=== PATIENT | female | born 1985 | race Caucasian/White ===

== ENCOUNTER → 2020-11-12 | Outpatient (CLI) | payer BC | END | disposition home or self-care (01) | LOC: RADMRIMAIN 11:34 | PROVIDERS: ATTEND Nurse Practitioner | DX: Z53.9 Procedure and treatment not carried out, unspecified reason (principal) ==

== ENCOUNTER → 2021-07-29 | Outpatient (CLI) | payer OTHER | END | disposition home or self-care (01) | LOC: LABWHC1 15:10 | PROVIDERS: ATTEND Emergency Medicine | DX: Z20.822 Contact with and (suspected) exposure to COVID-19 (principal) | CPT/HCPCS: 87635 ==

== ENCOUNTER 2022-03-26 05:58 | Day surgery (SDC) | payer BC, MEDICAID ==
[2022-03-24 16:12] VITALS: BMI 26.4
[~2022-03-26 05:58] MED LIST: LACTATED RINGERS 1,000 ML IV SCH; LIDOCAINE 1% (10MG/ML) FOR IV START INTRADERMA PRN
[2022-03-26 06:45] VITALS: RESP 16; TEMP 97.3
[2022-03-26] MEDS ORDERED: LIDOCAINE 1% (10MG/ML) FOR IV START SQ ONE (06:53)
[2022-03-26] MEDS ORDERED: fentaNYL (PF) 50 MCG/ML 2 ML AMP ONE (07:10)
[2022-03-26] MEDS ORDERED: PROPOFOL 10 MG/ML 20 ML VIAL IV ONE (07:10)
[2022-03-26] MEDS ORDERED: LIDOCAINE 2% INJ 20 MG/ML (2 ML VIAL) ONE (07:10)
[2022-03-26] MEDS ORDERED: MIDAZOLAM 2 MG/2 ML VIAL ONE (07:10)
--- NOTE | 2022-03-26 07:27 | P.PCN ---
Date of Procedure: 03/26/22 Procedure(s) Performed: Brief history: Patient is a pleasant 37-year-old white female scheduled for an elective upper endoscopy as well as colonoscopy as a part of evaluation of abdominal pain and change in bowel habits for the last several months duration. Procedure performed: Esophagogastroduodenoscopy with biopsy Colonoscopy Preoperative diagnosis: Abdominal pain Change in bowel habits Anesthesia: MAC Procedure: After informed consent was obtained from the patient was brought into the endoscopy unit and IV sedation was administered by anesthesia under continuous monitoring. Initially upper endoscopy was done. The Olympus GF 160 video endoscope was inserted inserted into the mouth and esophagus intubated without any difficulty and was gradually advanced into the stomach and duodenum and carefully examined. The bulb and second part of the duodenum appeared normal. Abscesses were done from the duodenum to rule out celiac disease. The scope was then withdrawn into the stomach adequately insufflated with air and upon careful examination the antrum and mild gastritis and biopsies were done from this area. The body, cardia and fundus appeared normal. The scope was then withdrawn into the esophagus. The GE junction was located at 38 cm to the incisors. It appeared regular once Provigil erosions consistent with LA grade a reflux esophagitis. Small sliding type hiatal hernia noted. Rest of the esophagus appeared normal. Patient tolerated the procedure well. At this time the patient continued to remain sedation. Initial digital rectal examination was normal. Olympus CF 160 video colonoscope was then inserted into the rectum and gradually advanced to the cecum without any difficulty. Careful examination was performed as the scope was gradually being withdrawn. The prep was excellent. terminal ileum was intubated and 20 cm visualized and appeared normal. The cecum, ascending colon, transverse colon, descending colon, sigmoid colon and rectum appeared normal. Retroflexion was performed in the rectum and no lesions were noted. Patient tolerated the procedure well. Impression: 1. Upper endoscopy revealed mild antral gastritis, small hiatal hernia and LA grade A reflux esophagitis 2. Colonoscopy was within normal limits with no evidence of colitis or colorectal neoplasia Recommendations: Findings of this examination were discussed with the patient as well as a family. She was advised to follow with the biopsy results. she'll be seen in office in 2-3 weeks.
[2022-03-26 07:52] VITALS: BP 132/90; PULSE 78
== END 2022-03-26 08:15 | disposition home or self-care (01) ==
LOC: ORWHC2ENDO 05:58
PROVIDERS: ATTEND Internal Medicine Gastroenterology
DX: K29.50 Unspecified chronic gastritis without bleeding (principal); K21.9 Gastro-esophageal reflux disease without esophagitis; K44.9 Diaphragmatic hernia without obstruction or gangrene; R19.4 Change in bowel habit; J45.909 Unspecified asthma, uncomplicated; I10 Essential (primary) hypertension; Z79.899 Other long term (current) drug therapy; Z88.1 Allergy status to other antibiotic agents; Z98.891 History of uterine scar from previous surgery
CPT/HCPCS: 81025; 88305; 45378; 43239; J2250; J3010; J2704; J2001

== ENCOUNTER → 2023-04-01 | Outpatient (CLI) | payer MEDICAID ==
--- NOTE | 2023-04-01 15:33 | MM ---
Reason for Exam: Screening (asymptomatic). Baseline mammogram. Patient History: Menarche at age 10. First Full-Term at age 19. Patient used Hormonal Contraceptives for 10 years. Last menstrual period: 03/30/2023 Risk Values: Ольга 5 year model risk: 0.5%. NCI Lifetime model risk: 9.0%. Prior Study Comparison: Patient's first Mammogram. Tissue Density: There are scattered fibroglandular densities. Findings: Analyzed By CAD. There is no suspicious group of microcalcifications or new suspicious mass in either breast. Overall Assessment: Negative, BI-RAD 1 Management: Screening Mammogram of both breasts in [address] [facility] will attempt to contact patient to return for supplemental views and ultrasound if indicated. Patient should continue monthly self-breast exams. A clinical breast exam by your physician is recommended on an annual basis. This exam should not preclude additional follow-up of suspicious palpable abnormalities. Note on Ольга scores and lifetime risk: 1. A Ольга score greater than 3% is considered moderate risk. If this is the case, consider specialist referral to assess eligibility for a risk reducing agent. 2. If overall lifetime risk for the development of breast cancer is 20% or higher, the patient may qualify for future screening with alternating mammogram and breast MRI. Electronically signed and approved by: Rudy Wolf DO
== END | disposition home or self-care (01) ==
LOC: RADMAMWWP 13:21
PROVIDERS: ATTEND Obstetrics & Gynecology
DX: Z12.31 Encounter for screening mammogram for malignant neoplasm of breast (principal)
CPT/HCPCS: 77063; 77067

== ENCOUNTER → 2023-07-15 | Outpatient (CLI) | payer MEDICAID ==
--- NOTE | 2023-07-15 10:37 | US ---
EXAMINATION TYPE: US pelvic complete DATE OF EXAM: 07/15/2023 COMPARISON: NONE CLINICAL INDICATION: Female, 38 years old with history of N94.6 DYSMENORRHEA, UNSPECIFIED; Cervial CA , pre testing for hysterectomy Aug 13 TECHNIQUE: OBTA. Transabdominal sonographic images of the pelvis were acquired. Date of LMP: last month EXAM MEASUREMENTS: Uterus: 9.2 x 4.9 x 3.9 cm Endometrial Stripe: 0.7 cm Right Ovary: 1.9 x 1.1 x 1.3 cm Left Ovary: 1.7 x 1.8 x 1.3 cm 1. Uterus: Anteverted wnl 2. Endometrium: wnl 3. Right Ovary: wnl 4. Left Ovary: wnl 5. Bilateral Adnexa: wnl 6. Posterior cul-de-sac: wnl IMPRESSION: Unremarkable study.
== END | disposition home or self-care (01) ==
LOC: RADUSWWP 10:12
PROVIDERS: ATTEND Obstetrics & Gynecology
DX: N94.6 Dysmenorrhea, unspecified (principal)
CPT/HCPCS: 76856

== ENCOUNTER → 2023-08-04 | Outpatient (CLI) | payer MEDICAID ==
--- NOTE | 2023-08-04 15:20 | CT ---
EXAMINATION TYPE: CT sinus wo con DATE OF EXAM: 08/04/2023 COMPARISON: None HISTORY: chronic sinusitis. CT DLP: 622.30 mGycm. Automated Exposure Control for Dose Reduction was Utilized. TECHNIQUE: CT scan of the sinuses is performed without contrast, axial images are obtained, coronal r eformatted images are also reviewed. FINDINGS: The paranasal sinuses including the frontal, ethmoid, sphenoid, and maxillary sinuses bila terally are well-aerated small mucous retention cyst or polyp involving the left maxillary sinus. Ceci y mild mucosal thickening involving the ethmoid air cells and maxillary sinuses. Minimal mucosal thic kening involving the frontal sinus. No air-fluid levels. Slight nasal septal deviation noted.. The o stiomeatal complex is patent bilaterally on the coronal images. Visualized portion of mastoid air cells show no abnormal opacification. The globes are intact bilate rally. Mild expansion of the sella turcica can be associated with increased benign intracranial hype rtension. IMPRESSION: 1. Mild chronic sinusitis. 2. Mild expansion of the sella turcica can be associated with increased benign intracranial hypertens ion.
== END | disposition home or self-care (01) ==
LOC: RADCTMAIN 14:01
PROVIDERS: ATTEND Otolaryngology
DX: J01.81 Other acute recurrent sinusitis (principal); G93.2 Benign intracranial hypertension
CPT/HCPCS: 70486

== ENCOUNTER → 2023-08-05 | Outpatient (CLI) | payer MEDICAID ==
[2023-08-05 10:59] LABS: Basophils # (A) 0.09 X 10*3/uL (0.00-0.10); Basophils % (A) 1.2 %; Eosinophils # (A) 0.59 X 10*3/uL (0.04-0.35); Eosinophils % (A) 7.6 %; HCT 41.2 % (37.2-46.3); HGB 13.4 d/dL (12.0-15.0); Lymphocytes # (A) 2.49 X 10*3/uL (0.90-5.00); Lymphocytes % (A) 31.9 %; MCH 28.4 pg (27.0-32.0); MCHC 32.5 d/dL (32.0-37.0); MCV 87.3 FL (80.0-97.0); Mean Platelet Volume 11.3 FL (9.5-12.2); Monocytes # (A) 0.71 X 10*3/uL (0.20-1.00); Monocytes % (A) 9.1 %; NRBC Per 100 WBC 0 X 10*3/uL (0.00-0.01); Neutrophils # (A) 3.92 X 10*3/uL (1.80-7.70); Neutrophils % (A) 50.1 %; Platelet Count 263 X 10*3/uL (140-440); RBC 4.72 X 10*6/uL (4.10-5.20); RDW 13.4 % (11.5-14.5); WBC 7.81 X 10*3/uL (4.50-10.00)
[2023-08-05 11:17] LABS: BUN/Creat Ratio 15.75 Ratio (12.00-20.00); Blood Urea Nitrogen 12.6 mg/dL (9.0-27.0); Calcium 10.3 mg/dL (8.7-10.3); Chloride 101 mmol/L (96-109); Glucose 110 mg/dL (70-110); Potassium 3.9 mmol/L (3.5-5.5); Sodium 138 mmol/L (135-145)
== END | disposition home or self-care (01) ==
LOC: LABWHC1 07:14
PROVIDERS: ATTEND Obstetrics & Gynecology
DX: Z01.812 Encounter for preprocedural laboratory examination (principal)
CPT/HCPCS: 36415; 80048; 85025; 86850; 86900; 86901

== ENCOUNTER 2023-08-13 05:39 | Inpatient (IN) | payer MEDICAID ==
[2023-08-07 11:51] VITALS: BMI 27.0
--- NOTE | 2023-08-12 20:07 | P.HPOB ---
History of Present Illness H&P Date: 08/12/23 Chief Complaint: Dysmenorrhea, menorrhagia with regular cycle, WILMER I This is a 38 y.o. female, 2, para 2, who presents for total abdominal hysterectomy with bilateral salpingectomy, possible bilateral oophorectomy due to menorrhagia with regular cycle and dysmenorrhea. She was also recently diagnosed with WILMER I on colposcopy. She has tried oral contraceptives with little relief of her symptoms and has requested hysterectomy. Pelvic ultrasound showed uterus measuring 9.2 x 4.9 x 3.9 cm with endometrium 7 mm and normal ovaries. OB History: . History of 1 vaginal delivery and 1 section for twins. 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 History of recent pap with LGSIL and WILMER I on colposcopy. Social Hx: Single. Works as a nurse aide. Review of Systems Constitutional: Denies chills, Denies fever Eyes: denies blurred vision, denies pain Ears, nose, mouth and throat: Denies headache, Denies sore throat Cardiovascular: Denies chest pain, Denies shortness of breath Respiratory: Denies cough Gastrointestinal: Reports abdominal pain, Reports constipation, Reports diarrhea, Reports heartburn, Denies nausea, Denies vomiting Genitourinary: Reports dysmenorrhea, Reports dyspareunia, Reports menorrhagia, Reports pelvic pain, Reports stress incontinence Musculoskeletal: Reports low back pain Integumentary: Denies pruritus, Denies rash Neurological: Denies numbness, Denies weakness Psychiatric: Denies anxiety, Denies depression Past Medical History Past Medical History: Asthma, Hypertension, Skin Disorder Additional Past Medical History / Comment(s): ECZEMA. CERVICAL Dysplasia (WILMER I). SINUSITIS. CHRONIC NON PRODUCTIVE COUGH. PRONE TO UTI'S History of Any Multi-Drug Resistant Organisms: None Reported Past Surgical History: Section, Cholecystectomy Additional Past Surgical History / Comment(s): COLONOSCOPY/EGD Past Anesthesia/Blood Transfusion Reactions: No Reported Reaction Past Psychological History: No Psychological Hx Reported Smoking Status: Former smoker Past Alcohol Use History: Occasional Past Drug Use History: None Reported - Past Family History Mother Family Medical History: Cancer Additional Family Medical History / Comment(s): CERVICAL CA Father Family Medical History: Hypertension Medications and Allergies Home Medications Medication Instructions Recorded Confirmed Type Azelastine/Fluticasone 1 spray EA NOSTRIL BID 08/07/23 08/13/23 History [Azelastin-Flutic 137-50Mcg Spr] Benzonatate [Tessalon Perles] 100 mg PO TID PRN 08/07/23 08/13/23 History Cholecalciferol [Vitamin D3 (25 50 mcg PO DAILY 08/07/23 08/13/23 History Mcg = 1000 Iu)] Desloratadine [Clarinex] 5 mg PO DAILY 08/07/23 08/13/23 History Losartan [Cozaar] 50 mg PO DAILY 08/07/23 08/13/23 History Triamcinolone 0.025% Cream 1 applic TOPICAL BID PRN 08/07/23 08/13/23 History [Kenalog 0.025% Cream] Allergies Allergy/AdvReac Type Severity Reaction Status Date / Time levofloxacin [From Levaquin] AdvReac Nausea & Verified 08/13/23 06:22 Vomiting Exam Osteopathic Statement: *. No significant issues noted on an osteopathic structural exam other than those noted in the History and Physical/Consult. HEENT: within normal limits Heart: regular rate and rhythm Lungs: clear to auscultation bilaterally Abdomen: soft, non-tender Pelvic: uterus small, anteverted, non-tender with no adnexal masses or tenderness Extremities: neg. Yvonne's Assessment and Plan (1) Menorrhagia with regular cycle Current Visit: No Status: Acute Code(s): N92.0 - EXCESSIVE AND FREQUENT MENSTRUATION WITH REGULAR CYCLE SNOMED Code(s): 092949430 (2) Dysmenorrhea Current Visit: No Status: Acute Code(s): N94.6 - DYSMENORRHEA, UNSPECIFIED SNOMED Code(s): 463857067 (3) WILMER I (cervical intraepithelial neoplasia I) Current Visit: No Status: Acute Code(s): N87.0 - MILD CERVICAL DYSPLASIA SNOMED Code(s): 232144827 Plan: Proceed with total abdominal hysterectomy with bilateral salpingectomy, possible bilateral oophorectomy. I have discussed the risks, benefits, and alternative therapies for the above- mentioned procedure and for both sedation/anesthesia as well as necessary blood products administration, if indicated, as they pertain to this patient. The patient has indicated her understanding and acceptance of the risks and procedures discussed.
[2023-08-13] MEDS ORDERED: ONDANSETRON 4 MG/2 ML VIAL IVP ONE (06:10)
[2023-08-13] MEDS ORDERED: DEXAMETHASONE SOD PHOSPHATE 4 MG/ML 1 ML VIAL IV ONE (06:10)
[2023-08-13] MEDS: LACTATED RINGERS 1,000 ML IV SCH ×3 (06:49→18:40)
[2023-08-13] MEDS ORDERED: SCOPOLAMINE 1 MG/72 HR PATCH TRANSDERM ONE (06:50)
[2023-08-13] MEDS ORDERED: MIDAZOLAM 2 MG/2 ML VIAL IVP ONE (06:59)
[2023-08-13] MEDS ORDERED: PROPOFOL 10 MG/ML 20 ML VIAL IV ONE (07:29)
[2023-08-13] MEDS ORDERED: HYDROmorphone (PF) 1 MG/ML ONE (07:29)
[2023-08-13] MEDS ORDERED: LIDOCAINE 1% INJ 10MG/ML (20 ML MDV) ONE (07:29)
[2023-08-13] MEDS ORDERED: fentaNYL (PF) 50 MCG/ML 2 ML AMP ONE (07:29)
[2023-08-13] MEDS ORDERED: MORPHINE SULFATE (PF) 0.3 MG/0.3 ML SYR ONE (07:29)
[2023-08-13] MEDS ORDERED: GLYCOPYRROLATE 0.2 MG/ML 2 ML VIAL ONE (07:29)
[2023-08-13] MEDS ORDERED: diphenhydrAMINE 50 MG/ML 1 ML VIAL ONE (07:29)
[2023-08-13] MEDS ORDERED: KETOROLAC 15 MG/ML 1 ML VIAL ONE (07:29)
[2023-08-13] MEDS ORDERED: SUCCINYLCHOLINE CHLORIDE 200 MG/10 ML VIAL IV ONE (07:29)
[2023-08-13] MEDS ORDERED: ROCURONIUM 10 MG/ML (5 ML VIAL) IV ONE (07:29)
[2023-08-13] MEDS ORDERED: NEOSTIGMINE 1 MG/ML 10 ML VIAL ONE (07:29)
[2023-08-13] MEDS ORDERED: KETOROLAC 15 MG/ML 1 ML VIAL IVP PRN (07:41)
[2023-08-13] MEDS ORDERED: METOCLOPRAMIDE 5 MG/ML 2 ML VIAL IVP PRN (07:41)
[2023-08-13] MEDS ORDERED: SIMETHICONE 80 MG CHEWABLE PO PRN (07:41)
[2023-08-13] MEDS ORDERED: ONDANSETRON 4 MG/2 ML VIAL IVP PRN (07:41)
[2023-08-13] MEDS ORDERED: ZOLPIDEM 5 MG TAB PO PRN (07:41)
[2023-08-13] MEDS ORDERED: diphenhydrAMINE 50 MG/ML 1 ML VIAL IVP PRN (07:41)
[2023-08-13] MEDS ORDERED: NALBUPHINE 10 MG/ML (10 ML MDV) IV PRN (08:19)
[2023-08-13] MEDS ORDERED: NALOXONE 0.4 MG/ML 1 ML VIAL IV PRN (08:19)
[2023-08-13] MEDS ORDERED: MORPHINE SULFATE 2 MG/ML SYRINGE IVP PRN (08:19)
--- NOTE | 2023-08-13 08:19 | P.ANPRN ---
Procedure Note - Anesthesia - Epidural/Spinal Spinal Date of Procedure: 08/13/23 Procedure Start Time: 06:59 Procedure Stop Time: 07:05 Indication: Acute Post-Operative Pain, Analgesia, Requested by Surgeon Sedation Type: Sedate with meaningful contact maintained Preparation: Sterile Prep Position: Sitting Needle Guage: 25 Injectate: Duramorph 0.3 mg+Fentanyl 25 mcg. Blood Aspirated: No Pain Paresthesia on Injection Noted: No Events: Uneventful and Well Tolerated
--- NOTE | 2023-08-13 08:53 | P.OP ---
Date of Procedure: 08/13/23 Preoperative Diagnosis: Menorrhagia with regular cycle Dysmenorrhea WILMER-1 Postoperative Diagnosis: Same Procedure(s) Performed: Total abdominal hysterectomy with bilateral salpingectomy Anesthesia: TRISH Surgeon: Imelda Farnsworth Piece Dyer #1: Yu Ovalle Estimated Blood Loss (ml): 50 Pathology: other (Uterus with cervix and bilateral fallopian tubes) Condition: stable Disposition: floor Indications for Procedure: This is a 38 y.o. female, 2, para 2, who presents for total abdominal hysterectomy with bilateral salpingectomy, possible bilateral oophorectomy due to menorrhagia with regular cycle and dysmenorrhea. She was also recently diagnosed with WILMER I on colposcopy. She has tried oral contraceptives with little relief of her symptoms and has requested hysterectomy. Pelvic ultrasound showed uterus measuring 9.2 x 4.9 x 3.9 cm with endometrium 7 mm and normal ovaries. Operative Findings: Normal appearing uterus and ovaries. Left fallopian tube was slightly adherent to the left ovary. There was a couple powder burn areas of endometriosis noted on the posterior cul-de-sac and the tubes. No significant adhesions are noted. Description of Procedure: The patient is taken to the operating room where she is placed in the dorsal supine position. She is prepped and draped in the normal sterile fashion including Harrison catheter insertion and vaginal prep. A Pfannenstiel skin incision is made through the previous laparotomy scar with a scalpel. A second knife was used to carry the incision down to the underlying layer of fascia. The fascia was nicked in the midline with a scalpel and then extended laterally bilaterally with De La Garza scissors. The superior aspect of the fascial incision was grasped with Williams clamps, elevated off the underlying rectus muscle in the midline and then cut with De La Garza scissors. The inferior aspect of the fascial incision was grasped with Williams clamps, elevated off the underlying rectus muscle in the midline and then cut with De La Garza scissors. Next the peritoneum was identified and entered sharply with De La Garza scissors. It is extended superiorly and in fairly with Metzenbaum scissors with good visualization of underlying structures. Next the [place] retractor is placed in the bladder blade was inserted. The bowels were packed with a 3 yard laparotomy sponge. Next the uterus is brought up incision and the corneal regions are grasped with Annika clamps on both sides. Next the fallopian tube on the left side is brought up to the incision and the mesosalpinx is clamped with a Francisco clamp after taking down some fine adhesions with Metzenbaum scissors. This is cut with De La Garza scissors and then sutured with 0 Vicryl suture in Francisco transfixion stitch. The remaining mesosalpinx is also clamped with a Francisco clamp, cut with De La Garza scissors, and sutured with 0 Vicryl suture in Francisco transfixion stitches. Next the uterine ovarian ligament is clamped with a Francisco clamp, cut with De La Garza scissors, and then sutured with 0 Vicryl suture in Francisco transfixion stitch. The same procedure is carried out on the right side. The uterine arteries and round ligaments are then clamped with Francisco clamp on either side. The vesicouterine peritoneum was sharply dissected away from the bladder with Metzenbaum scissors and pushed inferiorly. The uterine arteries are then cut with De La Garza scissors, and sutured with 0 Vicryl suture in Francisco transfixion stitches. Next the cardinal ligaments were clamped on either side with Francisco clamp, cut with De La Garza scissors, and sutured with 0 Vicryl suture in Francisco transfixion stitches. The uterosacral ligaments are clamped on either side with Francisco clamps, cut with De La Garza scissors, and sutured with 0 Vicryl suture in Francisco transfixion stitches on either side. The edges of the vaginal cuff were clamped on either side with a Francisco clamp, cut with De La Garza scissors, and sutured with 0 Vicryl suture in Francisco transfixion stitches and held on either side. The vaginal mucosa was then cut just below the level of the cervix and the specimen is removed from the field. The edges of the vaginal cuff were held with Williams clamps. Next the previously held corners of each side of the vaginal cuff were then whipstitched along the connective tissue on either side and brought through the corner of the cuff and tied. Next the vaginal cuff was sutured with 0 Vicryl suture in a running locked fashion. Hemostasis was noted. Copious irrigation is carried out with warm saline. Excellent hemostasis is noted. All sponges are removed from the abdomen. The peritoneum is then closed with 0 Vicryl suture in a running fashion. The muscle was then reapproximated with 0 Vicryl suture in interrupted fashion. The fascia layer is then closed with 0 PDS suture in a running fashion with the knots buried on either side and in the midline. Next the subcutaneous tissues closed with 2-0 Vicryl suture in a running fashion. The skin is closed with tish. All sponge and needle counts are correct and the patient is taken to recovery room in stable condition.
[2023-08-13] MEDS: HYDROmorphone 0.5 MG/0.5 ML SYRINGE IVP PRN ×3 (09:17→10:01)
[2023-08-13] MEDS ORDERED: LACTATED RINGERS 1,000 ML IV ONE ×2 (09:30)
[2023-08-13] MEDS ORDERED: ACETAMINOPHEN IV (For NPO) 1,000 MG in EMPTY BAG 1 BAG IVPB ONE (11:35)
[2023-08-13] MEDS ORDERED: LORATADINE 10 MG TAB PO SCH (12:00)
[2023-08-13] MEDS ORDERED: LOSARTAN 50 MG TAB PO SCH (12:00)
[2023-08-13] MEDS ORDERED: TRIAMCINOLONE 0.1% CREAM 80 GM TUBE TOPICAL PRN (20:00)
[2023-08-13] MEDS ORDERED: BENZONATATE 100 MG CAP PO PRN (20:00)
[2023-08-13] MEDS: SENNOSIDES-DOCUSATE SODIUM 1 EACH TAB PO SCH (20:04)
[2023-08-13] MEDS: AZELASTINE 137MCG/SPRAY EA NOSTRIL SCH (21:14)
[2023-08-13] MEDS: FLUTICASONE 50MCG/SPRAY NASAL 16GM EA NOSTRIL SCH (21:16)
[2023-08-14] MEDS: LACTATED RINGERS 1,000 ML IV SCH ×2 (03:50→05:42)
[2023-08-14] MEDS ORDERED: ACETAMINOPHEN TAB 325 MG TAB PO PRN (07:42)
[2023-08-14] MEDS: LORATADINE 10 MG TAB PO SCH (08:31)
[2023-08-14] MEDS: CHOLECALCIFEROL 25 MCG (1000 IU) TABLET PO SCH (08:31)
[2023-08-14] MEDS: LOSARTAN 50 MG TAB PO SCH (08:31)
[2023-08-14] MEDS: FLUTICASONE 50MCG/SPRAY NASAL 16GM EA NOSTRIL SCH ×2 (08:32→21:29)
[2023-08-14] MEDS: SENNOSIDES-DOCUSATE SODIUM 1 EACH TAB PO SCH ×2 (08:32→21:29)
[2023-08-14] MEDS: AZELASTINE 137MCG/SPRAY EA NOSTRIL SCH ×2 (08:32→21:29)
--- NOTE | 2023-08-14 08:57 | P.PN ---
Subjective Progress Note Date: 08/14/23 Principal diagnosis: Status post total abdominal hysterectomy with bilateral salpingectomy postoperative day #1 Patient is complaining of more pain this morning. She has tried oxycodone without much relief. She just received some Toradol. She is urinating without difficulty. Bleeding has been minimal. She has been ambulating. Objective - Vital Signs Vital signs: Vital Signs Temp 98.4 F 08/14/23 02:00 Pulse 74 08/14/23 02:00 Resp 18 08/13/23 19:56 BP 110/71 08/14/23 02:00 Pulse Ox 96 08/14/23 02:00 FiO2 Intake & Output 08/13/23 08/14/23 08/14/23 18:59 06:59 18:59 Intake Total 1550 Output Total 650 2400 Balance 900 -2400 Weight 70.6 kg Intake: IV 1550 Output: Urine 600 2400 Estimated Blood Loss 50 Other: Voiding Method Indwelling Catheter Indwelling Catheter - Constitutional General appearance: Present: mild distress - Gastrointestinal Gastrointestinal Comment(s): Incision is clean dry and intact with tish in place. Mild tenderness is noted just above the incision and some mild ecchymosis is noted. General gastrointestinal: Present: normal bowel sounds - Musculoskeletal Musculoskeletal Comment(s): Negative Homans bilaterally Assessment and Plan Assessment: Status post total abdominal hysterectomy with bilateral salpingectomy postoperative day #1 (1) Menorrhagia with regular cycle Current Visit: Yes Status: Acute Code(s): N92.0 - EXCESSIVE AND FREQUENT MENSTRUATION WITH REGULAR CYCLE SNOMED Code(s): 369201153 (2) Dysmenorrhea Current Visit: Yes Status: Acute Code(s): N94.6 - DYSMENORRHEA, UNSPECIFIED SNOMED Code(s): 941078055 (3) WILMER I (cervical intraepithelial neoplasia I) Current Visit: Yes Status: Acute Code(s): N87.0 - MILD CERVICAL DYSPLASIA SNOMED Code(s): 448367671 Plan: Continue with postoperative care today. Will advance diet as tolerated. Patient is encouraged to ambulate. May shower.
[2023-08-14 11:08] LABS: Basophils # (A) 0.05 X 10*3/uL (0.00-0.10); Basophils % (A) 0.5 %; Eosinophils # (A) 0.17 X 10*3/uL (0.04-0.35); Eosinophils % (A) 1.6 %; HCT 35.4 % (37.2-46.3); HGB 11.6 g/dL (12.0-15.0); Lymphocytes # (A) 2.81 X 10*3/uL (0.90-5.00); Lymphocytes % (A) 27.1 %; MCH 28.8 pg (27.0-32.0); MCHC 32.8 g/dL (32.0-37.0); MCV 87.8 FL (80.0-97.0); Monocytes # (A) 1.03 X 10*3/uL (0.20-1.00); Monocytes % (A) 9.9 %; NRBC Per 100 WBC 0 X 10*3/uL (0.00-0.01); Neutrophils # (A) 6.29 X 10*3/uL (1.80-7.70); Neutrophils % (A) 60.7 %; Platelet Count 221 X 10*3/uL (140-440); RBC 4.03 X 10*6/uL (4.10-5.20); RDW 13.5 % (11.5-14.5); WBC 10.37 X 10*3/uL (4.50-10.00)
--- NOTE | 2023-08-14 11:57 | P.PN ---
Progress Note - Text 08/14/23 647am 38-year-old female status post cholecystectomy by Dr. Farnsworth. Patient had spinal Duramorph for postop pain control, she was seen and evaluated. She is doing well with a pain score of 4. She also had complains of nausea vomiting and pruritus last night. Doing better this morning
[2023-08-14] MEDS: IBUPROFEN 600 MG TAB PO PRN (16:03)
[2023-08-15] MEDS: AZELASTINE 137MCG/SPRAY EA NOSTRIL SCH (08:28)
[2023-08-15] MEDS: FLUTICASONE 50MCG/SPRAY NASAL 16GM EA NOSTRIL SCH (08:29)
[2023-08-15] MEDS: IBUPROFEN 600 MG TAB PO PRN (08:29)
[2023-08-15] MEDS: CHOLECALCIFEROL 25 MCG (1000 IU) TABLET PO SCH (08:29)
[2023-08-15] MEDS: LORATADINE 10 MG TAB PO SCH (08:29)
[2023-08-15] MEDS: LOSARTAN 50 MG TAB PO SCH (08:29)
[2023-08-15] MEDS: SENNOSIDES-DOCUSATE SODIUM 1 EACH TAB PO SCH (08:29)
[2023-08-15 08:58] VITALS: BP 143/88; PULSE 102; RESP 16; TEMP 98.6
--- NOTE | 2023-08-15 11:52 | P.DS ---
Providers Date of admission: 08/13/23 05:39 Expected date of discharge: 08/15/23 Attending physician: Imelda Farnsworth Primary care physician: Harlan Lara - Discharge Diagnosis(es) (1) Menorrhagia with regular cycle Current Visit: Yes Status: Acute (2) Dysmenorrhea Current Visit: Yes Status: Acute (3) WILMER I (cervical intraepithelial neoplasia I) Current Visit: Yes Status: Acute Hospital Course: this is a 38-year-old female who underwent a total abdominal hysterectomy with bilateral salpingectomy on 08/13/2023. Her postoperative course has been essentially uncomplicated. She is still complaining of some gas pain but is passing flatus but no bowel movement yet. She is using ibuprofen and oxycodone alternating. She is urinating without difficulty. She has very minimal bleeding. Vital signs are stable. Abdomen is soft with positive bowel sounds 4. Incision is clean dry and intact with tish in place. Extremities show negative Homans. Impression is status post total abdominal hysterectomy with bilateral salpingectomy postoperative day #2. Plan is to discharge home today. Routine postoperative instructions are given. She is advised to follow up in the office in approximately 1 week for a postoperative check. She is advised to call the office if she has any further questions or concerns prior to her appointment time. She will be given a prescription for ibuprofen and she is also advised to continue taking Tylenol as needed. She will also be given a small amount of oxycodone to use only as needed. She has been counseled regarding opioid use and has signed a consent form. [place] will be removed and Steri-Strips placed prior to discharge. Procedures: total abdominal hysterectomy with bilateral salpingectomy on 08/13/2023 Patient Condition at Discharge: Stable Plan - Discharge Summary Discharge Rx Participant: No New Discharge Prescriptions: New Ibuprofen [Motrin] 600 mg PO Q6HR PRN #60 tab PRN Reason: Mild Discomfort oxyCODONE HCL [OxyIR] 5 mg PO Q6HR PRN #18 tab PRN Reason: Moderate To Severe Pain (4-10) Acetaminophen Tab [Tylenol] 650 mg PO Q6HR PRN tab PRN Reason: Mild Pain Or Fever > 100.5 Continue Cholecalciferol [Vitamin D3 (25 Mcg = 1000 Iu)] 50 mcg PO DAILY Benzonatate [Tessalon Perles] 100 mg PO TID PRN PRN Reason: Cough Triamcinolone 0.025% Cream [Kenalog 0.025% Cream] 1 applic TOPICAL BID PRN PRN Reason: ECZEMA Losartan [Cozaar] 50 mg PO DAILY Desloratadine [Clarinex] 5 mg PO DAILY Azelastine/Fluticasone [Azelastin-Flutic 137-50Mcg Spr] 1 spray EA NOSTRIL BID Discharge Medication List Azelastine/Fluticasone [Azelastin-Flutic 137-50Mcg Spr] 1 spray EA NOSTRIL BID 08/07/23 [History] Benzonatate [Tessalon Perles] 100 mg PO TID PRN 08/07/23 [History] Cholecalciferol [Vitamin D3 (25 Mcg = 1000 Iu)] 50 mcg PO DAILY 08/07/23 [Histor y] Desloratadine [Clarinex] 5 mg PO DAILY 08/07/23 [History] Losartan [Cozaar] 50 mg PO DAILY 08/07/23 [History] Triamcinolone 0.025% Cream [Kenalog 0.025% Cream] 1 applic TOPICAL BID PRN 08/07/23 [History] Acetaminophen Tab [Tylenol] 650 mg PO Q6HR PRN tab 08/15/23 [Rx] Ibuprofen [Motrin] 600 mg PO Q6HR PRN #60 tab 08/15/23 [Rx] oxyCODONE HCL [OxyIR] 5 mg PO Q6HR PRN #18 tab 08/15/23 [Rx] Follow up Appointment(s)/Referral(s): Imelda Farnsworth DO [Doctor of Osteopathic Medicine] - 1 Week Activity/Diet/Wound Care/Special Instructions: Activity as tolerated. Diet as tolerated. Shower, but no tub baths for at least 1 week[address] No driving until off of narcotic pain medication. No heavy lifting. No intercourse. Discharge Disposition: HOME SELF-CARE
== END 2023-08-15 13:05 | disposition home or self-care (01) | DRG 743 ==
LOC: 2ORMAIN 05:39 → 4SSUR 11:12
PROVIDERS: ADMIT Obstetrics & Gynecology; ATTEND Obstetrics & Gynecology
PROC: 0UT90ZZ Resection of Uterus, Open Approach (ICD-10-PCS; principal; 2023-08-13 07:30)
PROC: 0UT70ZZ Resection of Bilateral Fallopian Tubes, Open Approach (ICD-10-PCS; principal; 2023-08-13 07:30)
DX: N87.0 Mild cervical dysplasia (principal); N94.6 Dysmenorrhea, unspecified; N92.0 Excessive and frequent menstruation with regular cycle; I10 Essential (primary) hypertension; Z71.51 Drug abuse counseling and surveillance of drug abuser; F11.10 Opioid abuse, uncomplicated; Z28.310 Unvaccinated for COVID-19; L30.9 Dermatitis, unspecified; J45.909 Unspecified asthma, uncomplicated; Z87.440 Personal history of urinary (tract) infections; Z87.891 Personal history of nicotine dependence; Z79.899 Other long term (current) drug therapy
CPT/HCPCS: 81025; 85025; 88307; 94760

== ENCOUNTER → 2023-10-26 | Outpatient (CLI) | payer MEDICAID ==
[2023-10-26 15:00] LABS: BUN/Creat Ratio 17.12 Ratio (12.00-20.00); Blood Urea Nitrogen 13.7 mg/dL (9.0-27.0); Calcium 10.4 mg/dL (8.7-10.3); Carbon Dioxide 24.6 mmol/L (21.6-31.8); Chloride 100 mmol/L (96-109); Glucose 98 mg/dL (70-110); Potassium 4.4 mmol/L (3.5-5.5); Sodium 138 mmol/L (135-145)
[2023-10-26 15:07] LABS: Basophils # (A) 0.09 X 10*3/uL (0.00-0.10); Basophils % (A) 1.1 %; Eosinophils # (A) 0.55 X 10*3/uL (0.04-0.35); Eosinophils % (A) 6.7 %; HCT 42.9 % (37.2-46.3); HGB 13.6 g/dL (12.0-15.0); Lymphocytes # (A) 2.39 X 10*3/uL (0.90-5.00); Lymphocytes % (A) 29.1 %; MCH 28.3 pg (27.0-32.0); MCHC 31.7 g/dL (32.0-37.0); MCV 89.2 FL (80.0-97.0); Mean Platelet Volume 10.7 FL (9.5-12.2); Monocytes # (A) 0.87 X 10*3/uL (0.20-1.00); Monocytes % (A) 10.6 %; NRBC Per 100 WBC 0 X 10*3/uL (0.00-0.01); Neutrophils % (A) 52.3 %; Platelet Count 318 X 10*3/uL (140-440); RBC 4.81 X 10*6/uL (4.10-5.20); WBC 8.22 X 10*3/uL (4.50-10.00)
[2023-10-26 17:06] LABS: Appearance,Urine Cloudy (Clear); Bilirubin,Urine Negative (Negative); Blood,Urine Negative (Negative); Color,Urine Orange (Yellow); Ketones,Urine Negative (Negative); Nitrite,Urine Positive (Negative); Specific Gravity,Urine 1.007 (1.001-1.030)
[2023-10-26 17:28] LABS: Bacteria,Urine 3+ (None Seen)
== END | disposition home or self-care (01) ==
LOC: LABPAT 07:13
PROVIDERS: ATTEND Urology
DX: Z01.812 Encounter for preprocedural laboratory examination (principal); N39.3 Stress incontinence (female) (male); R35.0 Frequency of micturition
CPT/HCPCS: 80048; 81001; 85025; 87086

== ENCOUNTER 2023-11-03 09:15 | Day surgery (SDC) | payer MEDICAID ==
[2023-10-30 09:35] VITALS: BMI 27.6
--- NOTE | 2023-11-03 07:11 | P.HPIHPCON ---
History of Present Illness H&P Date: 11/03/23 Chief Complaint: Stress urinary incontinence This is a 38-year-old female with history of stress urinary incontinence, underwent urodynamic which was consistent with stress urinary incontinence. Option of bulking agent versus sling versus Kegel exercises were discussed with her in detail. She agreed to proceed with a transobturator sling, aware of the risk which includes but not limited to bleeding, infection, urinary retention, persistent incontinence. Discussed I will be using mesh. Discussed risk of mesh erosion into the urethra, vagina, the bladder. She understood all the risk and agreed to proceed Consent for Procedure: I have explained the operation/procedure to the patient, including the risks, benefits, side effects, alternative therapies (including not receiving the proposed treatment or service), the likelihood of the patient achieving his/her goals, and potential recuperation problems for the procedure/sedation/analgesia, as well as any blood products, if indicated. I also explained to the patient the risks, benefits and side effects of the alternatives, as well as the risks related to not receiving the proposed procedure, care, treatment, or services. Past Medical History Past Medical History: Asthma, Cancer, Hypertension Additional Past Medical History / Comment(s): CERVICAL CANCER. BENIGN INTRACRANIAL HYPERTENSION -CT SCAN 07/1023. CURRENTLY ON ANTIBIOTICS FOR UTI History of Any Multi-Drug Resistant Organisms: None Reported Past Surgical History: Section, Cholecystectomy, Hysterectomy Additional Past Surgical History / Comment(s): COLONOSCOPY/EGD Past Anesthesia/Blood Transfusion Reactions: No Reported Reaction Smoking Status: Former smoker - Past Family History Mother Family Medical History: Cancer Additional Family Medical History / Comment(s): CERVICAL CA Father Family Medical History: Hypertension Medications and Allergies Home Medications Medication Instructions Recorded Confirmed Type Azelastine/Fluticasone 1 spray EA NOSTRIL BID 08/07/23 10/30/23 History [Azelastin-Flutic 137-50Mcg Spr] Cholecalciferol [Vitamin D3 (25 50 mcg PO DAILY 08/07/23 10/30/23 History Mcg = 1000 Iu)] Desloratadine [Clarinex] 5 mg PO DAILY 08/07/23 10/30/23 History Losartan [Cozaar] 50 mg PO DAILY 08/07/23 10/30/23 History Acetaminophen Tab [Tylenol] 650 mg PO Q6HR PRN tab 08/15/23 10/30/23 Rx Ibuprofen [Motrin] 600 mg PO Q6HR PRN #60 tab 08/15/23 10/30/23 Rx Nitrofurantoin Monohyd/M-Cryst 100 mg PO BID 10/30/23 10/30/23 History [Nitrofurantoin [place]-Mcr 100 mg] Allergies Allergy/AdvReac Type Severity Reaction Status Date / Time levofloxacin [From Levaquin] AdvReac Nausea & Verified 10/30/23 09:19 Vomiting Surgical - Exam - General no distress, no pain - Eyes normal ocular movement, no pale - ENT normal nares, normal mucosa - Respiratory normal expansion, normal respiratory effort - Abdomen Abdomen: soft, non tender Assessment and Plan Assessment: OR for transobturator sling
[~2023-11-03 09:15] MED LIST changes: +DEXAMETHASONE SOD PHOSPHATE 4 MG/ML 1 ML VIAL IV ONE; +HYDROmorphone 0.5 MG/0.5 ML SYRINGE IVP PRN; +MIDAZOLAM 2 MG/2 ML VIAL IV PRN; +ONDANSETRON 4 MG/2 ML VIAL IVP ONE
[2023-11-03] MEDS ORDERED: FAMOTIDINE 20 MG/2 ML VIAL IVP ONE (10:23)
[2023-11-03] MEDS ORDERED: ONDANSETRON 4 MG/2 ML VIAL IVP PRN (10:39)
[2023-11-03] MEDS ORDERED: KETOROLAC 15 MG/ML 1 ML VIAL IVP PRN (10:39)
[2023-11-03] MEDS ORDERED: DEXTROSE 5%-0.45% NACL 1,000 ML IV SCH (10:45)
[2023-11-03] MEDS ORDERED: fentaNYL (PF) 50 MCG/ML 2 ML AMP ONE (10:48)
[2023-11-03] MEDS ORDERED: PROPOFOL 10 MG/ML 20 ML VIAL IV ONE (10:48)
[2023-11-03] MEDS ORDERED: MIDAZOLAM 2 MG/2 ML VIAL ONE (10:48)
[2023-11-03] MEDS ORDERED: PHENYLEPHRINE-0.9% NACL SYG 1,000 MCG/10 ML SYRINGE ONE (10:48)
[2023-11-03] MEDS ORDERED: SUCCINYLCHOLINE CHLORIDE 200 MG/10 ML VIAL IV ONE (10:48)
[2023-11-03] MEDS ORDERED: KETOROLAC 15 MG/ML 1 ML VIAL ONE (10:48)
[2023-11-03] MEDS ORDERED: LIDOCAINE 1% INJ 10MG/ML (20 ML MDV) ONE (10:48)
[2023-11-03] MEDS ORDERED: IOPAMIDOL-370 100ML BTL MISCELLANE ONE ×2 (11:34)
[2023-11-03] MEDS ORDERED: LACTATED RINGERS 1,000 ML IV ONE ×2 (11:48)
[2023-11-03 12:12] VITALS: TEMP 97.3
--- NOTE | 2023-11-03 12:27 | FL ---
EXAMINATION TYPE: FL urography retrograde DATE OF EXAM: 11/03/2023 COMPARISON: NONE HISTORY: Fistula TECHNIQUE: Fluoroscopy. FINDINGS: Exam for fistula 2.25min fluoro time 2.44 DAP IMPRESSION: As Above.
--- NOTE | 2023-11-03 14:03 | P.OP ---
Date of Procedure: 11/03/23 Preoperative Diagnosis: Stress urinary incontinence Postoperative Diagnosis: Vesicovaginal fistula Procedure(s) Performed: Cystoscopy, cystogram, bilateral retrograde pyelogram Implants: None Anesthesia: JOSSYA Surgeon: Eugenio Crouch Estimated Blood Loss (ml): 5 Pathology: none sent Condition: stable Disposition: PACU Indications for Procedure: This is a 38-year-old female with history of stress urinary incontinence, underwent urodynamic which was consistent with stress urinary incontinence. Option of bulking agent versus sling versus Kegel exercises were discussed with her in detail. She agreed to proceed with a transobturator sling, aware of the risk which includes but not limited to bleeding, infection, urinary retention, persistent incontinence. Discussed I will be using mesh. Discussed risk of mesh erosion into the urethra, vagina, the bladder. She understood all the risk and agreed to proceed Operative Findings: Less than 0.5 cm fistulous track around the posterior bladder wall, away from the trigone. Normal bilateral retrograde pyelogram, and cystoscopy fistulous track was confirmed Description of Procedure: Patient brought to the operating room, general anesthesia was induced. She was prepped and draped in sterile fashion and placed in dorsolithotomy position. At this time and examination of the patient there was significant amount of urine that was visualized in the vaginal vault, given this finding decision was made to proceed with a cystoscopy prior to placing the sling to rule out a potential fistula within the bladder. At this time cystoscope fitted with a 19 Ugandan sheath was inserted per urethra, complete cystoscopy was performed which showed evidence of a fistulous track that was seen along the posterior bladder wall that measured less than half a centimeter in terms of opening, it was away from the trigone on the right side. On bladder filling it was noticed that the vaginal vault vault was being filled up with irrigation. The area of opening appears to be at the vaginal cuff, I was not able to visualize it vaginally. At this time attention was carried to the cystogram, the cystoscopy was withdrawn and a 20 Ugandan Harrison was placed and the bladder was filled with 300 mL of Isovue, on cystogram it did show evidence contrast in the vaginal vault, and there was a wisp of contrast seen in connection between the bladder and the vagina which confirmed the finding of a vesicovaginal fistula. At this time attention was carried to the retrograde pyelogram to rule out potential concurrent ureterovaginal fistula also, the right ureter orifice was intubated with an 6 Ugandan open-ended catheter, retrograde Polygram was performed showed no filling defect or hydronephrosis, there was no evidence of extravasation of contrast or any fistulous tract. Retrograde pyelogram was performed on the left side which also showed no hydronephrosis, any filling defect or evidence of contrast extravasation to be consistent with a fistula. At this time given the finding of vesicovaginal fistula the decision was made to abort the placement of a sling. A 18 Ugandan Harrison was placed with return of clear urine I discussed these findings with both the patient and her . At this time the Harrison catheter, will stay in place for into for 2 weeks and we will repeat the cystoscopy and a cystogram, if there is evidence of the healing of the fistulous track then no further intervention is needed, but discussed with her given the timeframe of this fistula there is high likelihood she will require abdominal repair of her vesicovaginal fistula
[2023-11-03 14:05] VITALS: BP 121/83; PULSE 94; RESP 16
[2023-11-03] MEDS ORDERED: HEPARIN SODIUM,PORCINE 5,000 UNIT/ML 1 ML VIAL SQ SCH (16:00)
[2023-11-03] MEDS ORDERED: NITROFURANTOIN MONOHYD/M-CRYST 100 MG CAP PO SCH (21:00)
[2023-11-03] MEDS ORDERED: NON FORMULARY DRUG (Azelastine/Fluticasone [Azelastin-Flutic 137-50mcg Spr] 23 GM Each) EA NOSTRIL SCH (21:00)
[2023-11-04] MEDS ORDERED: LORATADINE 10 MG TAB PO SCH (09:00)
[2023-11-04] MEDS ORDERED: LOSARTAN 50 MG TAB PO SCH (09:00)
== END 2023-11-03 14:36 | disposition home or self-care (01) ==
LOC: OR 09:15 → 4FBP 11:47 → OR 14:36
PROVIDERS: ATTEND Urology
DX: N82.0 Vesicovaginal fistula (principal); N39.3 Stress incontinence (female) (male); I10 Essential (primary) hypertension; J45.909 Unspecified asthma, uncomplicated; Z90.710 Acquired absence of both cervix and uterus; Z90.49 Acquired absence of other specified parts of digestive tract; Z87.891 Personal history of nicotine dependence; Z79.899 Other long term (current) drug therapy; Z79.2 Long term (current) use of antibiotics; Z80.8 Family history of malignant neoplasm of other organs or systems; Z85.41 Personal history of malignant neoplasm of cervix uteri; Z98.890 Other specified postprocedural states; Z88.1 Allergy status to other antibiotic agents
CPT/HCPCS: 74420; 52005; 57288; J1100; J0690; J2405; J3490; Q9967

== ENCOUNTER → 2024-04-19 | Outpatient (CLI) | payer MEDICAID ==
[2024-04-19 15:53] LABS: HGB 13.4 g/dL (12.0-15.0); MCH 28.6 pg (27.0-32.0); MCHC 32.7 g/dL (32.0-37.0); MCV 87.6 FL (80.0-97.0); Mean Platelet Volume 11.2 FL (9.5-12.2); NRBC Per 100 WBC 0 X 10*3/uL (0.00-0.01); Platelet Count 275 X 10*3/uL (140-440); RBC 4.68 X 10*6/uL (4.10-5.20); RDW 13.3 % (11.5-14.5); WBC 6.51 X 10*3/uL (4.50-10.00)
[2024-04-19 16:27] LABS: ALT 39 U/L (8-44); AST 24 U/L (13-35); Albumin 4.7 g/dL (3.8-4.9); Albumin/Globulin Ratio 1.81 Ratio (1.60-3.17); Alkaline Phosphatase 60 U/L (41-126); BUN/Creat Ratio 14.89 Ratio (12.00-20.00); Blood Urea Nitrogen 13.4 mg/dL (9.0-27.0); Calcium 9.8 mg/dL (8.7-10.3); Carbon Dioxide 22.3 mmol/L (21.6-31.8); Chloride 105 mmol/L (96-109); Chol/HDL Ratio 3.51 Ratio; Globulin 2.6 g/dL (1.6-3.3); Glucose 94 mg/dL (70-110); LDL Cholesterol,Calculated 127.2 mg/dL (0.0-131.0); Potassium 4.5 mmol/L (3.5-5.5); Sodium 141 mmol/L (135-145); Total Bilirubin <0.2 mg/dL (0.3-1.2); Total Protein 7.3 g/dL (6.2-8.2)
--- NOTE | 2024-04-24 15:06 | MM ---
Reason for Exam: Screening (asymptomatic). Last mammogram was performed 1 year(s) and 1 month(s) ago. Patient History: Menarche at age 10. First Full-Term at age 19. Hysterectomy at age 38. Patient used Hormonal Contraceptives for 10 years. Risk Values: Ольга 5 year model risk: 0.5%. NCI Lifetime model risk: 9.0%. Prior Study Comparison: 04/01/2023 Bilateral MG 3D screening mammo w/cad, [facility]. Tissue Density: The breasts are heterogeneously dense, which may obscure small masses. Findings: Analyzed By CAD. The pattern is symmetrical. No significant interval change No suspicious groups of microcalcifications, spiculated or lobular masses, architectural distortion or other secondary signs of malignancy are mammographically apparent. Overall Assessment: Benign, BI-RAD 2 Management: Screening Mammogram of both breasts in 1 year. A negative mammogram report should not preclude additional follow up of suspicious palpable abnormalities. Patient should continue monthly self breast exam. A clinical breast exam by your physician is recommended on an annual basis and results should be correlated with mammographic findings. Note on Ольга scores and lifetime risk: 1. A Ольга score greater than 3% is considered moderate risk. If this is the case, consider specialist referral to assess eligibility for a risk reducing agent. 2. If overall lifetime risk for the development of breast cancer is 20% or higher, the patient may qualify for future screening with alternating mammogram and breast MRI. Electronically signed and approved by: Erasmo Vazquez D.O. Radiologis
== END | disposition home or self-care (01) ==
LOC: RADMAMWWP 10:27
PROVIDERS: ATTEND Family Medicine
DX: Z12.31 Encounter for screening mammogram for malignant neoplasm of breast (principal); Z00.00 Encounter for general adult medical examination without abnormal findings; R92.332 Mammographic heterogeneous density, left breast
CPT/HCPCS: 36415; 77063; 77067; 80053; 80061; 82306; 84443; 85027

== ENCOUNTER → 2024-08-15 | Outpatient (CLI) | payer MEDICAID ==
--- NOTE | 2024-08-26 13:15 | P.HOLTER ---
72 HOUR HOLTER MONITOR : INDICATION: Chest pain, R07.9, palpitations, sinus tachycardia START DATE: 08/15/2024 END DATE: 08/17/2024 Patient was moitored for 2 days 13 hours FINDINGS: Max HR: 148 BPM Min HR: 74 BPM Average HR: 104 BPM Supra-Ventricular ectopic burden: Less than 0.01% Ventricular ectopic burden: Less than 0.01% There were no signficant atrial fibrillation, atrial flutter, or sustained ventricular tachycardia episodes. There were no high-grade AV blocks There were no significant pauses greater than 2 seconds. Tachycardia burden during monitoring time 60% Patient triggered event corresponded to sinus rhythm and sinus tachycardia. CONCLUSION: Overall nonrevealing event monitor with few instances of tachycardia mostly during the day time Please correlate clinically. Sourav Lowry MD, FACC, RPVI Thank you for allowing [facility] to participate in this patient's care. Feel free to reach out in case of any followup questions.
--- NOTE | 2024-08-29 09:03 | HM ---
72 HOUR HOLTER MONITOR : INDICATION: Chest pain, R07.9, palpitations, sinus tachycardia START DATE: 08/15/2024 END DATE: 08/17/2024 Patient was monitored for 2 days 13 hours FINDINGS: Max HR: 148 BPM Min HR: 74 BPM Average HR: 104 BPM Supra-Ventricular ectopic burden: Less than 0.01% Ventricular ectopic burden: Less than 0.01% There were no signficant atrial fibrillation, atrial flutter, or sustained ventricular tachycardia episodes. There were no high-grade AV blocks There were no significant pauses greater than 2 seconds. Tachycardia burden during monitoring time 60% Patient triggered event corresponded to sinus rhythm and sinus tachycardia. CONCLUSION: Overall nonrevealing event monitor with few instances of tachycardia mostly during the day time Please correlate clinically. MTDD
== END | disposition home or self-care (01) ==
LOC: RADECHMAIN 07:31
PROVIDERS: ATTEND Internal Medicine Interventional Cardiology
DX: R00.0 Tachycardia, unspecified (principal); I49.3 Ventricular premature depolarization; R00.2 Palpitations
CPT/HCPCS: 93225

== ENCOUNTER → 2024-09-06 | Outpatient (CLI) | payer MEDICAID ==
[2024-09-06 18:21] LABS: Appearance,Urine Clear (Clear); Bilirubin,Urine Negative (Negative); Blood,Urine Small (Negative); Color,Urine Colorless; Glucose,Urine (UA) Negative (Negative); Ketones,Urine Negative (Negative); Leukocyte Esterase,Urine Negative (Negative); Mucus,Urine Rare /hpf; Nitrite,Urine Negative (Negative); Protein,Urine Negative (Negative); RBC,Urine 1 /hpf (0-5); Specific Gravity,Urine 1.011 (1.001-1.035); Squamous Epithelial Cell,Urine 2 /hpf (0-4); Urobilinogen,Urine <2.0 mg/dL (<2.0); WBC,Urine <1 /hpf (0-5)
[2024-09-07 02:39] LABS: HCT 38.3 % (37.2-46.3); HGB 12.4 g/dL (12.0-15.0); MCH 29.6 pg (27.0-32.0); MCHC 32.4 g/dL (32.0-37.0); MCV 91.4 FL (80.0-97.0); Mean Platelet Volume 11.6 FL (9.5-12.2); NRBC Per 100 WBC 0 X 10*3/uL (0.00-0.01); Platelet Count 241 X 10*3/uL (140-440); RBC 4.19 X 10*6/uL (4.10-5.20); RDW 13.2 % (11.5-14.5); WBC 8.72 X 10*3/uL (4.50-10.00)
[2024-09-07 02:40] LABS: Basophils % (A) 1.1 %; Eosinophils # (A) 1.12 X 10*3/uL (0.04-0.35); Eosinophils % (A) 12.8 %; Lymphocytes # (A) 2.79 X 10*3/uL (0.90-5.00); Monocytes # (A) 0.71 X 10*3/uL (0.20-1.00); Monocytes % (A) 8.1 %; Neutrophils # (A) 3.98 X 10*3/uL (1.80-7.70); Neutrophils % (A) 45.8 %
[2024-09-07 03:03] LABS: Blood Urea Nitrogen 9.6 mg/dL (9.0-27.0); Calcium 9.5 mg/dL (8.7-10.3); Carbon Dioxide 21.6 mmol/L (21.6-31.8); Chloride 105 mmol/L (96-109); Glucose 130 mg/dL (70-110); Sodium 140 mmol/L (135-145); T4, Free (Free Thyroxine) 0.88 ng/dL (0.80-1.80)
== END | disposition home or self-care (01) ==
LOC: LABPAT 15:48
PROVIDERS: ATTEND Urology
DX: Z01.812 Encounter for preprocedural laboratory examination (principal); N39.3 Stress incontinence (female) (male); R00.0 Tachycardia, unspecified
CPT/HCPCS: 80048; 81001; 84439; 84443; 85025; 87086

== ENCOUNTER → 2024-09-12 | Outpatient (CLI) | payer MEDICAID ==
--- NOTE | 2024-09-12 10:48 | CA ---
Transthoracic Echo Report Name: Elvia Veras Age: 39 Gender: F : 1985 Exam Date: 09/12/2024 08:58 Exam Location: [facility] Ht (in): 63 Wt (lb): 170 Ordering Physician: Sebastian Nash MD ([id number]) Attending/Referring Phys: Operations General Agent Paulina Cordoba RDCS Procedure CPT: Indications: R07.9 CHEST PAIN Cardiac Hx: Technical Quality: Good Contrast 1: Total Dose (mL): Contrast 2: Total Dose (mL): MEASUREMENTS (Male / Female) Normal Values 2D ECHO LV Diastolic Diameter PLAX 4.1 cm 4.2 - 5.9 / 3.9 - 5.3 cm LV Systolic Diameter PLAX 2.9 cm IVS Diastolic Thickness 1.1 cm 0.6 - 1.0 / 0.6 - 0.9 cm LVPW Diastolic Thickness 1.1 cm 0.6 - 1.0 / 0.6 - 0.9 cm LV Relative Wall Thickness 0.5 RV Internal Dim ED PLAX 3.1 cm LA Systolic Diameter LX 3.4 cm 3.0 - 4.0 / 2.7 - 3.8 cm LV Diastolic Volume MOD BP 87.4 cm??? 67 - 155 / 56 - 104 cm??? LV Systolic Volume MOD BP 32.9 cm??? / 19 - 49 cm??? LV Ejection Fraction MOD BP 62.3 % >= 55 % LV Cardiac Index MOD BP 2523.6 cm???/min???m??? LV Diastolic Volume MOD 4C 96.3 cm??? LV Systolic Volume MOD 4C 46.2 cm??? LV Ejection Fraction MOD 4C 52.1 % LV Cardiac Index MOD 4C 2323.3 cm???/min???m??? LV Diastolic Length 4C 8.0 cm LV Systolic Length 4C 6.5 cm LV Diastolic Volume MOD 2C 81.7 cm??? LV Systolic Volume MOD 2C 28.2 cm??? LV Ejection Fraction MOD 2C 65.4 % LV Cardiac Index MOD 2C 2476.1 cm???/min???m??? LV Diastolic Length 2C 7.0 cm LV Systolic Length 2C 6.3 cm LA Volume 33.8 cm??? - 58 / 22 - 52 cm??? LA Volume Index 18.0 cm???/m??? 16 - 28 cm???/m??? M-MODE Aortic Root Diameter MM 3.0 cm AV Cusp Separation MM 2.1 cm DOPPLER AV Peak Velocity 109.4 cm/s AV Peak Gradient 4.8 mmHg MV Area PHT 5.2 cm??? Mitral E Point Velocity 78.3 cm/s Mitral A Point Velocity 69.1 cm/s Mitral E to A Ratio 1.1 MV Deceleration Time 144.8 ms TR Peak Velocity 166.4 cm/s TR Peak Gradient 11.1 mmHg Right Ventricular Systolic Press 16.1 mmHg FINDINGS Left Ventricle Left ventricular ejection fraction is estimated at 55-60 %. Left ventricular cavity size normal. Mildly increased septal wall thickness. Mildly increased posterior wall thickness. Right Ventricle Normal right ventricular size and function. Right ventricular systolic pressure within normal limits. Right Atrium Normal right atrial size. No right atrial thrombus or mass seen. Left Atrium Normal left atrial size. No left atrial thrombus or mass present. Mitral Valve Structurally normal mitral valve. No mitral stenosis, regurgitation or prolapse. Aortic Valve Trileaflet aortic valve. No aortic valve stenosis or regurgitation. Tricuspid Valve Structurally normal tricuspid valve. Trace to mild tricuspid regurgitation. Pulmonic Valve Structurally normal pulmonic valve. Trace pulmonic regurgitation. Pericardium No pericardial or pleural effusion. Aorta Normal size aortic root and proximal ascending aorta. CONCLUSIONS Normal LV size and systolic function. No significant abnormality on the Doppler exam. No pericardial effusion Previewed by: Dr. Ольга Jarrell MD (Electronically Signed) Final Date: 12 September 2024 10:47
== END | disposition home or self-care (01) ==
LOC: RADECHMAIN 08:39
PROVIDERS: ATTEND Internal Medicine Interventional Cardiology
DX: R07.9 Chest pain, unspecified (principal)
CPT/HCPCS: 93306

== ENCOUNTER 2024-09-13 09:49 | Day surgery (SDC) | payer MEDICAID ==
--- NOTE | 2024-09-13 07:36 | P.HPIHPCON ---
History of Present Illness H&P Date: 09/13/24 Chief Complaint: Stress urinary incontinence This is a 39-year-old female with history of stress urinary incontinence, has failed Kegel exercises and continues to have symptoms. Of note she has history of hysterectomy complicated by a vesicovaginal fistula, this was repaired robotically by Dr. Carpio at [facility]. She underwent subsequent cystoscopy which showed resolution of the fistula. She continues to have stress incontinence. Surgical option for her stress incontinence were discussed, she agreed to proceed with a transobturator sling. Aware of the risk which includes but not limited to bleeding, infection, persistent incontinence, urinary retention. Discussed also I will be using a mesh sling. Aware of the risk of mesh erosion into the bladder, urethra and vagina. She understood all the risk and agreed to proceed Consent for Procedure: I have explained the operation/procedure to the patient, including the risks, benefits, side effects, alternative therapies (including not receiving the proposed treatment or service), the likelihood of the patient achieving his/her goals, and potential recuperation problems for the procedure/sedation/analgesia, as well as any blood products, if indicated. I also explained to the patient the risks, benefits and side effects of the alternatives, as well as the risks related to not receiving the proposed procedure, care, treatment, or services. Past Medical History Past Medical History: Asthma, Hypertension Additional Past Medical History / Comment(s): UPPER AND LOWER ABD. PAIN History of Any Multi-Drug Resistant Organisms: None Reported Past Surgical History: Section, Cholecystectomy Additional Past Surgical History / Comment(s): COLONOSCOPY/EGD Past Anesthesia/Blood Transfusion Reactions: No Reported Reaction Smoking Status: Former smoker - Past Family History Mother Family Medical History: Cancer Additional Family Medical History / Comment(s): CERVICAL CA Father Family Medical History: Hypertension Medications and Allergies Home Medications Medication Instructions Recorded Confirmed Type Azelastine/Fluticasone 1 spray EA NOSTRIL BID 08/07/23 10/30/23 History [Azelastin-Flutic 137-50Mcg Spr] Cholecalciferol [Vitamin D3 (25 50 mcg PO DAILY 08/07/23 10/30/23 History Mcg = 1000 Iu)] Desloratadine [Clarinex] 5 mg PO DAILY 08/07/23 10/30/23 History Losartan [Cozaar] 50 mg PO DAILY 08/07/23 11/03/23 History Acetaminophen Tab [Tylenol] 650 mg PO Q6HR PRN tab 08/15/23 10/30/23 Rx Ibuprofen [Motrin] 600 mg PO Q6HR PRN #60 tab 08/15/23 10/30/23 Rx Nitrofurantoin Monohyd/M-Cryst 100 mg PO BID 10/30/23 10/30/23 History [Nitrofurantoin [place]-Mcr 100 mg] Nitrofurantoin Monohyd/M-Cryst 100 mg PO Q12HR #28 cap 11/03/23 Rx [Macrobid] Allergies Allergy/AdvReac Type Severity Reaction Status Date / Time levofloxacin [From Levaquin] AdvReac Nausea & Verified 11/03/23 10:05 Vomiting Surgical - Exam - General no distress, no pain - Eyes normal ocular movement, no pale - ENT normal nares, normal mucosa - Respiratory normal expansion, normal respiratory effort - Abdomen Abdomen: soft, non tender - Psychiatric oriented to time, oriented to person, oriented to place Assessment and Plan Assessment: OR for transobturator sling
[~2024-09-13 09:49] MED LIST changes: -DEXAMETHASONE SOD PHOSPHATE 4 MG/ML 1 ML VIAL IV ONE; -LACTATED RINGERS 1,000 ML IV SCH; -LIDOCAINE 1% (10MG/ML) FOR IV START INTRADERMA PRN; -ONDANSETRON 4 MG/2 ML VIAL IVP ONE
[2024-09-13] MEDS ORDERED: ACETAMINOPHEN TAB 325 MG TAB PO PRN (10:39)
[2024-09-13] MEDS: IV FLUID CONTINUATION 1,000 ML IV ONE (10:45)
[2024-09-13] MEDS: SCOPOLAMINE 1 MG/72 HR PATCH TRANSDERM ONE (10:46)
[2024-09-13] MEDS: LACTATED RINGERS 1,000 ML IV SCH (10:46)
[2024-09-13] MEDS: DEXAMETHASONE SOD PHOSPHATE 4 MG/ML 1 ML VIAL IV ONE (10:47)
[2024-09-13] MEDS: ONDANSETRON 4 MG/2 ML VIAL IVP ONE (10:47)
[2024-09-13] MEDS: fentaNYL (PF) 50 MCG/ML 2 ML AMP IVP PRN (11:49)
[2024-09-13] MEDS ORDERED: fentaNYL (PF) 50 MCG/ML 2 ML AMP ONE (11:52)
[2024-09-13] MEDS ORDERED: LIDOCAINE 1% INJ 10MG/ML (20 ML MDV) ONE (11:52)
[2024-09-13] MEDS ORDERED: PROPOFOL 10 MG/ML 20 ML VIAL IV ONE (11:52)
[2024-09-13] MEDS ORDERED: MIDAZOLAM 2 MG/2 ML VIAL ONE (11:52)
[2024-09-13] MEDS: LIDOCAINE 1%-EPI 1:100,000 20 ML VIAL SQ ONE (12:29)
--- NOTE | 2024-09-13 13:23 | P.OP ---
Date of Procedure: 09/13/24 Preoperative Diagnosis: Stress urinary incontinence Postoperative Diagnosis: Same Procedure(s) Performed: Transobturator mid urethral sling, cystoscopy Implants: Obtryx sling Anesthesia: JOSSYA Surgeon: Eugenio Crouch Estimated Blood Loss (ml): 25 Pathology: none sent Condition: stable Disposition: PACU Indications for Procedure: This is a 39-year-old female with history of stress urinary incontinence, has failed Kegel exercises and continues to have symptoms. Of note she has history of hysterectomy complicated by a vesicovaginal fistula, this was repaired robotically by Dr. Carpio at [facility]. She underwent subsequent cystoscopy which showed resolution of the fistula. She continues to have stress incontinence. Surgical option for her stress incontinence were discussed, she agreed to proceed with a transobturator sling. Aware of the risk which includes but not limited to bleeding, infection, persistent incontinence, urinary retention. Discussed also I will be using a mesh sling. Aware of the risk of mesh erosion into the bladder, urethra and vagina. She understood all the risk and agreed to proceed Description of Procedure: The patient was taken to the operating room and placed in the dorsal lithotomy position, with her legs supported in Ty stirrups. The perineum, lower abdomen, and vagina were prepped and draped sterilely. A 16-Hebrew Harrison catheter was placed. Silk sutures were placed to retract the labia laterally on each side. 0.5% Marcaine with epinephrine was injected submucosally within the anterior vaginal wall, over the urethra. The scalpel was then used to make an anterior midline vaginal incision over the urethra. Metzenbaum scissors were used to dissect laterally within the submucosal plane, to the inferior pubic ramus. The scalpel was used to make bilateral groin incisions at the level of the clitoris. Subcutaneous tissues were spread with a hemostat. Each of the helical needles were passed through the respective groin incision, and turned such that the needle tip wrapped around the pubis. The needle tips were guided digitally into the vaginal incision. The Obtryx graft, which had been previously soaked in antibiotic solution, was secured to the needle tips in the standard fashion. The needles were then withdrawn, and the position of the graft was adjusted such that it overlie the mid urethra, as desired. With a hemostat placed between the graft and the urethra to prevent tension of the graft over the urethra, the plastic sheath was removed from the ends of the graft. The ends of the graft were cut beneath the skin incisions, and these incisions were closed using 4-0 Vicryl suture in a subcuticular fashion. Hemostasis within the vaginal incision was adequate, and the vaginal incision was closed using 2-0 Vicryl suture in a running fashion. Cystoscopy was performed. The 30 lens was used to introduce the 19-Hebrew Storz cystoscopic sheath through the urethra and into the bladder under direct vision. The urethra and bladder were unremarkable. There was no evidence of perforation. Both ureteral orifices were of normal anatomic location and configuration, and clear urine effluxed from both. No tumors or foreign bodies were seen. The cystoscope was removed, and the Harrison catheter was replaced into the bladder. Vaginal packing was placed. All sponge and needle counts were correct. The patient tolerated the procedure well was taken to the recovery room in stable condition.
[2024-09-13] MEDS ORDERED: ONDANSETRON 4 MG/2 ML VIAL IVP PRN (13:26)
[2024-09-13] MEDS: KETOROLAC 15 MG/ML 1 ML VIAL IVP SCH (14:01)
[2024-09-13] MEDS: HEPARIN SODIUM,PORCINE 5,000 UNIT/ML 1 ML VIAL SQ SCH (16:26)
[2024-09-13] MEDS: DEXTROSE 5%-0.45% NACL 1,000 ML IV SCH (16:26)
[2024-09-13] MEDS: LOSARTAN 50 MG TAB PO SCH (16:26)
[2024-09-13] MEDS: HYDROmorphone 0.5 MG/0.5 ML SYRINGE IVP PRN (16:26)
[2024-09-13] MEDS: AZELASTINE 137MCG/SPRAY EA NOSTRIL SCH (21:31)
[2024-09-13] MEDS: FLUTICASONE NASAL 50MCG/SPRAY 16GM BTL EA NOSTRIL SCH (21:31)
[2024-09-13] MEDS: NON FORMULARY DRUG (Methenamine Hippurate [Methenamine Hippurate] 1 GM Tablet) PO SCH ×2 (22:36→22:46)
[2024-09-14] MEDS: PANTOPRAZOLE 40 MG TABLET PO SCH (06:29)
[2024-09-14 07:55] VITALS: BP 117/80; PULSE 91; RESP 18; TEMP 98.3
[2024-09-14] MEDS: LORATADINE 10 MG TAB PO SCH (08:06)
--- NOTE | 2024-09-14 18:55 | P.DS ---
Providers Attending physician: Eugenio Crouch MD Primary care physician: Harlan aPkqvi [facility] Course: This is a 39-year-old female with history of stress urinary incontinence, underwent a transobturator sling on September 13. Please see op note dated September 13 for surgery details. Patient was admitted to the hospital postoperatively. Harrison catheter in vaginal packing was removed on postop day #1. She was able to void after catheter removal. She was discharged home on postop day #1 at time of discharge she was tolerating a diet, ambulating, and pain was controlle Plan - Discharge Summary Discharge Rx Participant: Yes New Discharge Prescriptions: New Cephalexin [Keflex] 500 mg PO Q8HR #15 cap Ketorolac [Toradol] 10 mg PO Q6HR PRN #15 tab PRN Reason: Pain No Action Cholecalciferol [Vitamin D3 (25 Mcg = 1000 Iu)] 50 mcg PO DAILY Ibuprofen [Motrin] 600 mg PO Q6HR PRN #60 tab PRN Reason: Mild Discomfort Acetaminophen Tab [Tylenol] 650 mg PO Q6HR PRN tab PRN Reason: Mild Pain Or Fever > 100.5 Omeprazole [PriLOSEC] 1 tab PO DAILY Levocetirizine Dihydrochloride [Xyzal] 5 mg PO DAILY Zinc Gluconate [Zinc] 50 mg PO DAILY Losartan [Cozaar] 50 mg PO DAILY Azelastine/Fluticasone [Azelastin-Flutic 137-50Mcg Spr] 1 spray EA NOSTRIL BID Methenamine Hippurate 1 tab PO BID Multivitamin [Multivitamins Adult Gummies] 1 tab PO DAILY Discharge Medication List Azelastine/Fluticasone [Azelastin-Flutic 137-50Mcg Spr] 1 spray EA NOSTRIL BID 08/07/23 [History] Cholecalciferol [Vitamin D3 (25 Mcg = 1000 Iu)] 50 mcg PO DAILY 08/07/23 [History] Losartan [Cozaar] 50 mg PO DAILY 08/07/23 [History] Acetaminophen Tab [Tylenol] 650 mg PO Q6HR PRN tab 08/15/23 [Rx] Ibuprofen [Motrin] 600 mg PO Q6HR PRN #60 tab 08/15/23 [Rx] Levocetirizine Dihydrochloride [Xyzal] 5 mg PO DAILY 09/13/24 [History] Methenamine Hippurate 1 tab PO BID 09/13/24 [History] Multivitamin [Multivitamins Adult Gummies] 1 tab PO DAILY 09/13/24 [History] Omeprazole [PriLOSEC] 1 tab PO DAILY 09/13/24 [History] Zinc Gluconate [Zinc] 50 mg PO DAILY 09/13/24 [History] Cephalexin [Keflex] 500 mg PO Q8HR #15 cap 09/14/24 [Rx] Ketorolac [Toradol] 10 mg PO Q6HR PRN #15 tab 09/14/24 [Rx] Follow up Appointment(s)/Referral(s): Eugenio Crouch MD [STAFF PHYSICIAN] - 09/21/24 10:20 am Patient Instructions/Handouts: How to Use an Incentive Spirometer (DC) Discharge Disposition: HOME SELF-CARE
== END 2024-09-14 12:53 | disposition home or self-care (01) ==
LOC: OR 09:49 → 4SSUR 13:24 → OR 09-14 12:53
PROVIDERS: ATTEND Urology
DX: N39.3 Stress incontinence (female) (male) (principal); I10 Essential (primary) hypertension; J45.909 Unspecified asthma, uncomplicated; Z90.49 Acquired absence of other specified parts of digestive tract; Z87.891 Personal history of nicotine dependence; Z82.49 Family history of ischemic heart disease and other diseases of the circulatory system; Z88.1 Allergy status to other antibiotic agents; Z90.710 Acquired absence of both cervix and uterus; Z79.1 Long term (current) use of non-steroidal anti-inflammatories (NSAID); Z79.899 Other long term (current) drug therapy
CPT/HCPCS: 81025; 57288; C1771; J1644 ×2; J1100; J0690; J2405; J3010; J1885 ×2; J1171

== ENCOUNTER → 2024-12-05 | Outpatient (CLI) | payer MEDICAID ==
--- NOTE | 2024-12-05 12:18 | CA ---
Stress Echo Report Elvia Veras Age: 39 Gender: F : 1985 Exam Date: 12/05/2024 10:18 Exam Location: [facility] Ht (in): 63 Wt (lb): 169 Ordering Physician: Sebastian Nash MD ([id number]) Referring Physician: Sebastian Nash MD ([id number]) Cable Assembler: ROGER Technologist Procedure CPT: Indication: R07.9 CHEST PAIN ICD-9 Codes: Rhythm: Patient History: Chest pain, Shortness of breat and palpitations. Cardiac Medications: Medications in past 24 hours: Contrast: Stress Results Protocol: Deandre Total dose(mL): Exercise Duration (min:sec): 7:[address] Depression (mm): 0 Angina Score: 0 Rae Score: 7.02 METS: 8.5 Resting HR: 114 Resting BP: 141 / 100 Peak HR: 169 Peak BP: 185 / 100 Max Predicted HR: 179 94 % Max Predicted HR Target HR: 152 Double Product: [id number] Stress Summary: The patient's target heart rate was achieved The hemodynamic response to exercise was normal BP Response: Normal Reason for Termination: Cardiac Symptoms: ECG Analysis Resting ECG: Normal sinus rhythm, normal ECG Stress ECG: No abnormal ST/T wave changes with exercise Arrhythmia: None Echo Analysis Resting Echo: Normal resting echocardiogram. Peak Echo Analysis: Normal wall thickening and motion MEASUREMENTS (Male/Female) Normal Values CONCLUSIONS Patient falls into low-risk group (DTS >= +5). This associates the patient with an annual CV mortality <= 0.5%. 1. Average exercise tolerance with no evidence of exercise- induced ischemia 2. Normal stress echocardiogram with no evidence of stress induced ischemia Dr. Rhina Hester MD (Electronically Signed) Final Date: 05 December 2024 12:17
== END | disposition home or self-care (01) ==
LOC: RADNMMAIN 09:52
PROVIDERS: ATTEND Internal Medicine Interventional Cardiology
DX: R07.9 Chest pain, unspecified (principal); R00.2 Palpitations; R06.02 Shortness of breath
CPT/HCPCS: 93351

== ENCOUNTER 2025-04-06 11:06 | Emergency (ER) | payer OTHER, MEDICAID ==
[2025-04-06] MEDS: ACETAMINOPHEN TAB 500 MG TAB PO STA (11:25)
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
[2025-04-06 12:34] VITALS: BP 143/103; PULSE 98; RESP 18; TEMP 98.2
== END 2025-04-06 13:37 | disposition home or self-care (01) ==
LOC: EC 11:06
DX: S49.92XA Unspecified injury of left shoulder and upper arm, initial encounter (principal); Z87.891 Personal history of nicotine dependence; Z88.1 Allergy status to other antibiotic agents; V43.52XA Car driver injured in collision with other type car in traffic accident, initial encounter; Y92.410 Unspecified street and highway as the place of occurrence of the external cause
CPT/HCPCS: 72050; 99283